=== PATIENT | male | born 1970 | race Caucasian/White ===

== ENCOUNTER 2020-01-15 14:55 | Emergency (ER) | payer SELFPAY ==
[~2020-01-15] VITALS: Ht 170.2 cm; Wt 77.3 kg
[2020-01-15 14:57] VITALS: BP 145/88
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
--- NOTE | 2020-01-15 15:44 | NUR ---
CT TO ROOM TO TRANSPORT PATIENT, PATIENT NOT IN ROOM, C-COLLAR ON COUNTER AND BELONGINGS GONE. PATIENT NOT IN DEPARTMENT AND ELOPED.
== END 2020-01-15 15:46 | disposition left against medical advice (07) ==
LOC: ED 15:12
DX: S09.90XA Unspecified injury of head, initial encounter (principal); M54.2 Cervicalgia; X58.XXXA Exposure to other specified factors, initial encounter; Y93.89 Activity, other specified; Y92.89 Other specified places as the place of occurrence of the external cause; Y99.8 Other external cause status
CPT/HCPCS: 99283